=== PATIENT | male | born 1940 | race Caucasian/White ===

== ENCOUNTER → 2017-03-16 | Outpatient (CLI) | payer OTHER ==
[~2017-03-16] VITALS: Ht 172.7 cm; Wt 92.1 kg
[~2017-03-16] MED LIST: ASPIR 8181 MG PO; CENTRUM SILVER1 EAC2 PO; ZIAC 5-6.25 MG1 EACH PO; ZOCOR20 MG PO
--- NOTE | ~2017-03-16 | S ---
[facility] [place] [address] SURGICAL PATH RPT PROCEDURE Name: MAHESH SAHNI Room #: REG [facility].#: [id number] Admission: 03/16/17 Date of : 40 Discharge: Report #: [id number] Path Case #: [id number] PATHOLOGY REPORT COLLECTION DATE: 03/16/2017 RECEIVED DATE: 03/16/2017 SUBMITTING PHYS: Dr. Rob Graf OTHER PHYS: Dr. Meenakshi De La O SPECIMEN(S) RECEIVED: A.Polyp at transverse colon B.Polyp at sigmoid colon * * * * * * * * * * * * FINAL DIAGNOSIS: A. Colon, transverse, biopsy: - Adenomatous polyp. B. Colon, sigmoid, biopsy: - Hyperplastic polyps. - Tiny fragment of ulcerated mucosa with associated acute and chronically inflamed granulation tissue. (SKM:eunice; 03/17/2017) PATHOLOGIST: Ruben Palmer M.D. REPORT ELECTRONICALLY SIGNED BY: Ruben Palmer M.D. DATE/TIME: 03/17/2017 11:30 * * * * * * * * * * * * GROSS PATHOLOGY: A. Received in formalin labeled "Mahesh Sahni, transverse colon polyp," is a segment of sanchez soft tissue measuring 0.3 cm in maximum dimension. The specimen is submitted entirely in cassette A1. B. Received in formalin labeled "Mahesh Sahni, sigmoid colon, polyp," are multiple segments of sanchez soft tissue measuring 0.5 cm in aggregate dimensions and ranging from 0.1 to 0.5 cm in maximum dimension. The specimen is submitted entirely in cassette B1. (SNA; 03/16/2017) CLINICAL HISTORY: History of polyps, diverticulosis, colon polyps INITIAL CPT CODE(S): A; 92413 B; 70754 Professional services performed by [facility] at [facility] [address] [place] [address] SURGICAL PATH RPT PROCEDURE Name: MAHESH SAHNI Room #: REG CLI He.#: [id number] Admission: 03/16/17 Date of : 40 Discharge: Report #: [id number] Path Case #: [id number] [address], [place] [address] Technical services performed by [facility] at [address] [place] [address], [facility] [address] [address]. [place] [address] PHONE: [phone] DIRECTOR: Schuyler Barone M.D. * * * END OF REPORT * * *
== END | disposition home or self-care (01) ==
LOC: GI 08:10
DX: Z09 Encounter for follow-up examination after completed treatment for conditions other than malignant neoplasm (principal); Z87.19 Personal history of other diseases of the digestive system; D12.3 Benign neoplasm of transverse colon; D12.5 Benign neoplasm of sigmoid colon; K64.8 Other hemorrhoids; K57.30 Diverticulosis of large intestine without perforation or abscess without bleeding
CPT/HCPCS: 62110; 62900